=== PATIENT | male | born 1990 | race Caucasian/White ===

== ENCOUNTER 2018-05-29 06:38 | Emergency (ER) | payer OTHER ==
[~2018-05-29] VITALS: Ht 177.8 cm; Wt 79.4 kg
[2018-05-29] MEDS ORDERED: NEURONTIN800 MG ORAL (06:43)
[2018-05-29] MEDS ORDERED: SEROQUEL XR150 MG ORAL (06:43)
[2018-05-29] MEDS ORDERED: PANTOPRAZOLE SO40 MG ORAL (06:43)
[2018-05-29 06:53] VITALS: BP 144/97
--- NOTE | 2018-05-29 06:57 | Emergency Room Report ---
History of Present Illness General Chief Complaint: Overdose Source: Patient Present Illness HPI CC: "I just did too much." HPI: This pleasant gentleman presents after overdose of heroin. He admitting to injecting heroin just prior to arrival. He received 2 mg Naloxone per nasal spray His roommates at a sober living facilty found him to be unresponsive. A resident at the facility called 911. He has been clean for 90 days. He denies any suicidal or homicidal ideation. He takes Seroquel for "sleep". He takes pantoprazole for acid reflux. Also takes gabapentin 800 mg 4 times a day. Recently admitted at [facility] for kidney issues. He denies any physical complaints. Denies any pain. Denies any shortness of breath or chest pain.. He takes gabapentin for neuropathy and anxiety. At this moment he wants minimal healthcare. He just wants to go home and apologized to his colleagues at the sober living house. Allergies: Coded Allergies: SULFA (SULFONAMIDE ANTIBIOTICS) (Verified Allergy, Unknown, 05/29/18) Patient History Past Surgical History: other - Anxiety, neuropathy, acid reflux, IV drug abuse Social History: Reports: drug use Reviewed Nursing Documentation: PMH: Agreed; PSxH: Agreed Nursing Documentation-PMH Past Medical History: No History, Except For Hx Neurological Problems: No - neuropathy left arm Review of Systems Constitutional: Denies: no symptoms, see HPI, chills, sweats, fever, malaise, weakness, other Eye: Denies: eye pain Respiratory: Denies: cough Cardiovascular: Denies: chest pain Gastrointestinal: Denies: abdominal pain Psychiatric: Denies: depressed feelings Neurological: Denies: headache All Other Systems: negative except mentioned in HPI Physical Exam Vital Signs Date Time Temp Pulse Resp B/P (MAP) Pulse Ox O2 Delivery O2 Flow Rate FiO2 05/29/18 06:32 98.4 118 14 133/87 99 Room Air 98.4 Sp02 EP Interpretation: reviewed, normal General Appearance: no apparent distress, alert, GCS 15, non-toxic Head: normocephalic, atraumatic Eyes: bilateral eye normal inspection, bilateral eye PERRL ENT: hearing grossly normal, normal pharynx, no angioedema, normal voice Neck: full range of motion, supple/symm/no masses Respiratory: chest non-tender, lungs clear, normal breath sounds, speaking full sentences Cardiovascular #1: regular rate, rhythm, no edema Gastrointestinal: normal bowel sounds, non tender, soft, non-distended, no guarding, no rebound Rectal: deferred Musculoskeletal: back normal, gait/station normal, normal range of motion, non- tender, calf tenderness Neurologic: alert, oriented x3, responsive, motor strength/tone normal, sensory intact, speech normal Psychiatric: judgement/insight normal, memory normal, mood/affect normal, no suicidal/homicidal ideation Skin: normal color, no rash, warm/dry, well hydrated Medical Decision Making Diagnostic Impression: Primary Impression: Accidental heroin overdose Additional Impression: Drug abuse, IV ER Course Mr. Romeo presents after unintentional overdose of heroin. He is remorseful. He is motivated to not repeat this action. He denies SI/HI. He is very thankful for the opportunity that he has at the sober living facility. He also knew that sobriety is a risk factor for overdose. He understands that his drug tolerance has markedly decreased. According to literature search, it is safe to discharge this patient after one hour of observation. https://emj.bmj.com/content///250 However, I could not convince Mr. Romeo to stay. He was polite and cooperative. He has appropriate insight. He had decision making ability. He was ambulatory. He signed AMA form. He understood the risk of and coma once the effect of naloxone wore off. I informed him that the effects of naloxone will diminish after 40 minutes. He understood this risk. Last Vital Signs Date Time Temp Pulse Resp B/P (MAP) Pulse Ox O2 Delivery O2 Flow Rate FiO2 05/29/18 06:32 98.4 118 14 133/87 99 Room Air 98.4 Disposition: AGAINST MEDICAL ADVICE Condition: Stable Jessica Augustine MD May 29, 2018 06:57
== END 2018-05-29 06:53 | disposition left against medical advice (07) ==
LOC: EDBD 06:38 → EMR 06:40
DX: T40.1X4A Poisoning by heroin, undetermined, initial encounter (principal); Y92.199 Unspecified place in other specified residential institution as the place of occurrence of the external cause; F41.8 Other specified anxiety disorders; G62.9 Polyneuropathy, unspecified; Z79.899 Other long term (current) drug therapy
CPT/HCPCS: 99282